=== PATIENT | male | born 1990 | race Caucasian/White ===

== ENCOUNTER 2020-12-17 16:53 | Emergency (ER) | payer OTHER ==
[~2020-12-17 16:53] MED LIST: BENZONATATE100 MG PO; CYCLOBENZAPRINE10 MG PO; IBUPROFEN600 MG PO; LODINE CAP 300300 MG PO; ZOFRAN ODT 4 MG4 MG PO; ZOFRAN ODT 4 MG4 MG SL
[2020-12-17] MEDS ORDERED: VENTOLIN HFA 66.7 GM INH (20:25)
[2020-12-17] MEDS ORDERED: LODINE CAP 300300 MG PO (20:25)
== END 2020-12-17 20:58 | disposition home or self-care (01) ==
LOC: ER1 16:53
DX: J06.9 Acute upper respiratory infection, unspecified (principal); Z20.822 Contact with and (suspected) exposure to COVID-19
CPT/HCPCS: 99283; U0002

== ENCOUNTER 2021-02-13 16:19 | Emergency (ER) | payer OTHER ==
[~2021-02-13 16:19] MED LIST changes: +VENTOLIN HFA 66.7 GM INH
[2021-02-13] MEDS ORDERED: AUGMENTIN600 MG/5 M PO (18:50)
== END 2021-02-13 19:09 | disposition home or self-care (01) ==
LOC: ER1 16:19
DX: J00 Acute nasopharyngitis [common cold] (principal); Z20.822 Contact with and (suspected) exposure to COVID-19
CPT/HCPCS: 87081; 87880; 99283; U0002

== ENCOUNTER 2021-06-12 16:51 | Emergency (ER) | payer OTHER ==
[~2021-06-12 16:51] MED LIST changes: +AUGMENTIN600 MG/5 M PO
[2021-06-12] MEDS ORDERED: IBUPROFEN800 MG PO (18:04)
== END 2021-06-12 18:20 | disposition home or self-care (01) ==
LOC: ER1 16:51
DX: S83.91XA Sprain of unspecified site of right knee, initial encounter (principal); W22.8XXA Striking against or struck by other objects, initial encounter; Y92.009 Unspecified place in unspecified non-institutional (private) residence as the place of occurrence of the external cause
CPT/HCPCS: 73564; 99283

== ENCOUNTER 2021-09-26 07:23 | Emergency (ER) | payer OTHER ==
[~2021-09-26 07:23] MED LIST changes: +IBUPROFEN800 MG PO
[2021-09-26 08:52] LABS: HEMOGLOBIN 15.6 gm/dl (14.0-17.5); RED BLOOD COUNT 5.1 M/UL (4.20-5.50); WHITE BLOOD COUNT 9.9 K/UL (4.5-11.0)
[2021-09-26 09:23] LABS: BUN/CREATININE RATIO 10 (0-10)
[2021-09-26] MEDS ORDERED: BENTYL 20MG TAB20 MG PO (11:12)
[2021-09-26] MEDS ORDERED: AMOX TR-K CLV1 EAC4 PO (11:12)
[2021-09-26] MEDS ORDERED: ZOFRAN 4 MG TAB4 MG PO (11:12)
== END 2021-09-26 12:02 | disposition home or self-care (01) ==
LOC: ER1 07:23
PROVIDERS: Physician Assistant
DX: K81.9 Cholecystitis, unspecified (principal)
CPT/HCPCS: 76705; 80053; 81001; 85025; 96374; 96375; 99284; J2270; J2405; J2543; J7030; Q9967